=== PATIENT | male | born 1955 ===

== ENCOUNTER 2019-05-10 10:04 | Inpatient (IN) | payer MEDICAID ==
[~2019-05-10] VITALS: Ht 177.8 cm; Wt 72.5 kg
[2019-05-10] MEDS ORDERED: mag hydrox/Alum hydrox/simeth 30ml oral suspension PO PRN (15:10)
[2019-05-10] MEDS ORDERED: loperamide 2mg capsule PO PRN (15:10)
[2019-05-10] MEDS ORDERED: magnesium hydroxide 30ml (MOM) UD suspension PO PRN (15:10)
[2019-05-10] MEDS ORDERED: acetaminophen 325mg tablet PO PRN ×2 (15:10)
[2019-05-10] MEDS ORDERED: tuberculin, purif. prot. deriv. 5 units/0.1ml ID ONE (15:10)
[2019-05-10] MEDS ORDERED: olanzapine 10mg tablet PO PRN (15:20)
[2019-05-10] MEDS ORDERED: polyvinyl alcohol ophthalmic drops 15ml bottle EACHEYE PRN (15:20)
--- NOTE | 2019-05-10 16:15 | NUR ---
Admission note: Admitted this 63 year old gentleman on a 5150 for Gra[employer] disability at 1515 hours today. Client was brought to the unit in with Security and several staff members. He was wanded prior to his admission to the unit and then showered. Vital signs were, BP= 110/63, P=45, R=18 and T was 98.7. O2 sats upon admission was 100 percent on RA. Client refused height but weighs 67.8 kg. Client denied pain or problems upon admission. All assessments for admission completed by this expert medical writer. MRSA swab was collected and PPD was refused by client. During assessment, client was verbally abusive towards staff and was selectively mute during the assessment process. Tobacco cessation was discussed but quickly dismissed by client who stated, " I don't need to listen to you, you are a mother fucker". Client is a flight risk and staff has been alerted to the potential for elopement. Medical and family history is unclear due to client refusing to reply to questions. All patient belongings were inventoried per unit protocol and contraband (tobacco cutter) was confiscated without problems. Client remained hostile, abusive and threatening throughout interview but was redirectable at times.
[2019-05-10] MEDS ORDERED: NO HOME MEDS (17:31)
[2019-05-10] MEDS ORDERED: OLANZapine 2.5MG tablet PO PRN (21:20)
[2019-05-11] MEDS: hydrOXYzine 25 MG tablet PO PRN (00:45)
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
[2019-05-11] MEDS ORDERED: LORazepam 2 mg/ml vial ONE (08:39)
[2019-05-11] MEDS ORDERED: haloperidol lactate 5mg/ml inj ONE (08:40)
[2019-05-11] MEDS ORDERED: benztropine 1 mg/ml 2ml ampule ONE (08:41)
--- NOTE | 2019-05-11 09:25 | NUR ---
Unusual Occurrence After breakfast in the community room, patient gathered his blankets and announced he was leaving. Presented as agitated and angry. Walked down to the emergency exit near the laundry room and proceeded to lean on the door handle. Staff went down the elizabeth after patient and distracted him away from the emergency door. Patient insisted he was going to leave and attempted to go out the locked front door. Angi RN standing in front of door and notified patient door was locked. Agitated mood continued. Patient's safety and that of other patients of concern at this time. Dr. Susana Sauer called and notified of patient's behavior. Orders given for IM medication. Security called for back-up. Medication drawn up and administered in both arms with the help of security. Patient escorted back to his bed and made comfortable with warm blankets. Staff Jose sitting at bedside to ensure patient's safety from falling in the event he got out of bed. Patient fell asleep within 15 minutes. Color and breathing WNL. No S/S distress. Side rails up at head of bed. Line of sight staff removed. Will be maintained on 15 minute checks.
--- NOTE | 2019-05-11 11:54 | NUR ---
Malnutrition consult. Patient is eating well 100%, no edema, no muscle weakness, prior weight and height appear to be in error from May 04 ED visit, height is 75 inches from ED visit and weight is patient stated. No malnutrition at this time. Addendum: 05/11/19 at [address] Amended: Links added.
[2019-05-11] MEDS: LORazepam 1 MG tablet PO PRN (14:08)
[2019-05-11] MEDS: OLANZapine 5mg rapidly disint. tablet PO PRN (14:08)
--- NOTE | 2019-05-11 14:18 | NUR ---
Nursing Progress Note: Legal hold: 5150 Client on involuntary status for GD Report received from nurse with use of SBAR: GRACE Sands Why are they here: Pt. brought to the ER by [employer] after being found walking on the freeway in an aletered state of confusion with agitation. He presented as deeply tanned, disheveled, and malodorous and was placed on a 5150 by [facility] for GD. Per ER notes, pt. reported he had walker from [facility] to [place] and was on his way to [place], stated, "I'm going to get the michael that killed my brother." He is currently homeless and unable to utilize resources to obtain food, clothing, or snf. Pt. had recently been released from the [facility] for intoxication and several APS reports had been made. Tox Screen negative. Assessment What has happened this shift: Woke up in an agitated mood. Using foul language when addressing staff. Repeatedly states "I'm leaving. I'm getting out of this place." as he holds on to his blankets wadded in his arms. Eventually allowed staff to direct him to the community room for breakfast. Ate 100% of his meal. (Please see earlier note.) Slept until lunchtime when informed his meal was here. Allowed staff to direct him to his tray stating "Thank you" "Yes ma'am" After eating 100% of his meal stated "I wish I could get well." When asked what was the matter patient replied "I have pneumonia. I'm cold and I can't warm up." Given heated blankets and made comfortable in bed. Asked if he thought he needed more medication and patient responded "yes." Zyprexa Zydis 10 mg. PO and Ativan 1 mg. PO administered without event. Noticeable change in mood and affect since medication administration. Calm, cooperative and relaxed. Dr. Sina Rees here to see patient for medical exam. Patient stated to doctor "I have pneumonia." Denies coughing, productive cough or fever though does admit to chills. S/I, H/I: Endorses H/I, states, stated, "I'm going to get the michael that killed my brother." A/VH: Denies, however appears to be responding to internal stimuli and can be observed talking softly to himself. Sleep: Sleeping easily this shift ADL's: Requires direction from staff, pt. is unsuccessful at locating the BR in his room, and has to be directed from staff several times throughout the shift Group attendance: Did not attend Were meds taken: Please see note Any med S/E: None noted by patient or observed Mental Status Exam Appearance: Pt. continues to present as deeply tanned, disheveled, and malodorous Eye contact: Poor Behavior: Resistive to care, confused, restless, irritable, agitated at times, impulsive, and withdrawn Speech: Soft, becomes intense and pressured when agitated. Pt. responds only to questions and sometimes will become agitated and refuse to respond at all. Mood: Irritable and withdrawn Affect: Constricted Thought process: Tangental, however able to be redirected Thought Content: Possible A/V/ALCANTAR, grandiose delusions, and preoccupation with "leaving tomorrow." Cognition: A &O X1 Insight: Poor Judgment: Poor Interventions PRN's used: Zyprexa and Atrax Therapeutic interventions: Introduced self and attempted to establish rapport, ensured contract for safety, maintained a safe and supportive environment, provided clear and simple instructions, provided re-orientation as needed, monitored behaviors and need for intervention, and maintained Q 15 min safety checks. Restraints/seclusion/emergency medication: N/A Justification of Continued Inpatient Treatment: Pt. is unable to provide for his own food, clothing and snf. He requires medication adjustments and a safe and supportive environment.
[2019-05-11] MEDS ORDERED: tuberculin, purif. prot. deriv. 5 units/0.1ml ID ONE (14:25)
[2019-05-11 16:10] LABS: HIV ANTIBODY 1&2 RAPID NON-REACTIVE (Neg)
--- NOTE | 2019-05-11 19:11 | NUR ---
This patient is sleeping at shift change.
[2019-05-11 20:00] VITALS: BP 109/58
[2019-05-11] MEDS: OLANZapine 2.5MG tablet PO SCH (20:44)
--- NOTE | 2019-05-11 23:24 | NUR ---
Nursing Progress Note: Legal hold: 5150 Client on involuntary status for GD Report received from nurse with use of SBAR: GRACE Swanson Why are they here: Pt. brought to the ER by [employer] after being found walking on the freeway in an aletered state of confusion with agitation. He presented as deeply tanned, disheveled, and malodorous and was placed on a [address] [facility] for GD. Per ER notes, pt. reported he had walker from [facility] to [place] and was on his way to [place], stated, "I'm going to get the michael that killed my brother." He is currently homeless and unable to utilize resources to obtain food, clothing, or residential. Pt. had recently been released from the [facility] for intoxication and several APS reports had been made. Tox Screen negative. Assessment What has happened this shift: This patient was sleeping on his left side and did not awaken to light stimulation. This patient awoke later and was moved to another room. He sat up in bed, he ate 100 percent of his food. The patient tells this bid writer that he feels tired. This patient denies any H/I, S/I, or hallucinations. He speaks quietly, he is medication compliant. Patient was reported to endorse H/I on the day shift, there is no mention of this to this bid writer on nights. The patient took his night time medications and returned to sleep. Patients resting pulse rate is 50. The patient vital sighs are asymptomatic. his patient was advised that he was in a safe place prior to going to sleep. He did exhibit understanding of this. Q15 minute rounding will be done for patient safety. S/I, H/I: Denies A/VH: Denies. Sleep: Sleeping easily this shift ADL's: None on NOC shift noted. Group attendance: Did not attend on days. Were meds taken: Yes Any med S/E: None noted by patient or observed. Mental Status Exam Appearance: Pt. continues to present as deeply tanned, disheveled, and malodorous. Eye contact: Poor Behavior: Resistive to care, confused, restless, irritable, agitated at times, impulsive, and withdrawn Speech: Soft, becomes intense and pressured when agitated. Pt. responds only to questions and sometimes will become agitated and refuse to respond at all. Mood: Quiet and withdrawn. Affect: Constricted Thought process: Tangental, however able to be redirected Thought Content: Possible A/V/ALCANTAR, grandiose delusions, and preoccupation with "leaving tomorrow." Cognition: A &O X3 Insight: Fair Judgment: Fair Interventions PRN's used: None Therapeutic interventions: Introduced self and attempted to establish rapport, ensured contract for safety, maintained a safe and supportive environment, provided clear and simple instructions, provided re-orientation as needed, monitored behaviors and need for intervention, and maintained Q 15 min safety checks. Restraints/seclusion/emergency medication: N/A Justification of Continued Inpatient Treatment: Pt. is unable to provide for his own food, clothing and residential. He requires medication adjustments and a safe and supportive environment.
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
[2019-05-12 20:00] VITALS: BP 105/51
[2019-05-12] MEDS: hydrOXYzine 25 MG tablet PO PRN (21:22)
[2019-05-12] MEDS: OLANZapine 2.5MG tablet PO SCH (21:22)
[2019-05-12] MEDS: LORazepam 1 MG tablet PO PRN (21:23)
[2019-05-12] MEDS ORDERED: temazepam 15mg capsule PO PRN (23:25)
--- NOTE | 2019-05-12 23:42 | NUR ---
Patient rang call hernández. Upon entering patients room he is rummaging through the trash can, he does not know why. Patient states he can't sleep, "I haven't slept for three days." Patient is unaware that he slept the previous night. Patient exhibits purposeless behavior. He appears less psychotic than earlier in the evening. The patient requests sleep medication. Dr. Sauer was contacted by [employer]. TO orders received for Restoril 30 mg now. This was administered. The patient does not require much discussion to effect medication compliance at this time.
[2019-05-13] MEDS ORDERED: traZODone 50mg tablet PO ONE (01:40)
--- NOTE | 2019-05-13 02:08 | NUR ---
This patient was sitting in hallway, states he can't sleep yet. contacted. TO for Trazadone 50 mg, MRX1 received. The first dose was administered a short time ago.
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
[2019-05-13 07:09] LABS: HBSAG SCREEN Negative (Negative); HEP A AB, IGM Negative (Negative); HEP B CORE AB, IGM Negative (Negative); HEPATITIS C ANTIBODY <0.1 s/co ratio (0.0-0.9)
[2019-05-13 16:00] VITALS: BP 103/43
--- NOTE | 2019-05-13 17:17 | NUR ---
Nursing Progress Note: Latrell Legal hold: 5150 Client on involuntary status for GD Report received from principal quality engineer RN Why are they here: Pt. brought to the ER by [employer] after being found walking on the freeway in an altered state of confusion with agitation. He presented as deeply tanned, disheveled, and malodorous and was placed on a 5150 by [facility] for GD. Per ER notes, pt. reported he had walker from [facility] to [place] and was on his way to [place], stated, "I'm going to get the michael that killed my brother." He is currently homeless and unable to utilize resources to obtain food, clothing, or fdc. Pt. had recently been released from the [facility] for intoxication and several APS reports had been made. Tox Screen negative. Assessment What has happened this shift: Received client in bed resting with eyes closed. Respirations were even and unlabored. Client stated, "I want to rest". Client refused breakfast but did consume a doughnut and a milk and returned to bed. He refused vital signs and said, " I do not want your fucking pills". Client was notified that he would be changing rooms and he accepted the news without incident. After transfer was conducted, client said, "Thank-you". He was given a PBJ sandwich and a milk before returning to bed. No somatic complaints as of this writing. Client is less labile today and has interacted with staff in an appropriate manner. Client able to make his needs known. Patient did complain of rib pain earlier in shift but no complaints of problem or pain this afternoon. S/I, H/I: No S/I, patient does make homicidal statements. A/VH: none reported Sleep: 5.25 ADL's: Independent Group attendance: Were meds taken: N/A Any med S/E: None noted by patient or observed. Mental Status Exam Appearance: disheveled and unkempt Eye contact: direct Behavior: Resistive to medications but redirected with success. Speech: Minimal, soft tone, normal rate/rhythm Mood: Agitation, angry, paranoia at times. Affect: congruent to mood Thought process: disorganized Thought Content: preoccupation with leaving Cognition: Oriented to person, doesn't know place, time, or year. Insight: Fair Judgment: Fair to poor. Interventions PRN's used: None Therapeutic interventions: Continued therapeutic support and medication management needed to provide stabilization, prevent decompensation, improve coping mechanisms decreasing risk to patient and re-admittance. Restraints/seclusion/emergency medication: N/A Justification of Continued Inpatient Treatment: Pt. is unable to provide for his own food, clothing and fdc. Continued therapeutic support and medication management needed to provide stabilization, prevent decompensation, decreasing risk to patient and re-admittance.
[2019-05-13] MEDS ORDERED: traZODone 50mg tablet PO PRN (19:30)
[2019-05-13 20:00] VITALS: BP 106/52
[2019-05-13] MEDS ORDERED: traZODone 50mg tablet PO SCH (20:00)
[2019-05-13] MEDS: LORazepam 1 MG tablet PO PRN (21:00)
[2019-05-13] MEDS: OLANZapine 5mg rapidly disint. tablet PO SCH (21:00)
[2019-05-14] MEDS ORDERED: traZODone 50mg tablet PO SCH (00:35)
--- NOTE | 2019-05-14 02:15 | NUR ---
Nursing Progress Note: Latrell Legal hold: 5150 Client on involuntary status for GD Report received from GRACE Chau Why are they here: Pt. brought to the ER by [employer] after being found walking on the freeway in an altered state of confusion with agitation. He presented as deeply tanned, disheveled, and malodorous and was placed on a 5150 by [facility] for GD. Per ER notes, pt. reported he had walker from [facility] to [place] and was on his way to [place], stated, "I'm going to get the michael that killed my brother." He is currently homeless and unable to utilize resources to obtain food, clothing, or long-term. Pt. had recently been released from the [facility] for intoxication and several APS reports had been made. Tox Screen negative. Assessment What has happened this shift: The patient was ambulatory at shift change. He ate all of his dinner. He sat with this leader writer in the recreation room. Patient is oriented to person, he understands he is in a behavioral health facility. Patient still wants to leave. Patient becomes labile at times, talks of going to [place] to kill the man who overdosed his baby brother with alcohol. He is delusional at times. Patient denies S/I or H/I, he denies hallucinations. This patient is medication compliant. This patient can be redirected. This patient exhibits disorientation to time and sometimes situation. This patient is reassured that he is in a safe place. Q15 minute rounding will be continued. S/I, H/I: No S/I, patient does make homicidal statements. A/VH: none reported Sleep: Intermittent. Tallies are not done on nights yet. ADL's: Independent Group attendance: Unknown on days. Were meds taken: N/A Any med S/E: None noted by patient or observed. Mental Status Exam Appearance: Disheveled and unkempt Eye contact: Direct Behavior: Resistive to medications but redirected with success. Speech: Minimal, soft tone, normal rate/rhythm Mood: Agitation, angry, paranoia at times. Affect: Congruent to mood Thought process: Disorganized Thought Content: Preoccupation with leaving. Patient attempted to exit via panic hardware early yesterday am. Cognition: Oriented to person, doesn't know place, time, or year. Insight: Fair Judgment: Fair to poor. Interventions PRN's used: None Therapeutic interventions: Continued therapeutic support and medication management needed to provide stabilization, prevent decompensation, improve coping mechanisms decreasing risk to patient and re-admittance. Restraints/seclusion/emergency medication: N/A Justification of Continued Inpatient Treatment: Pt. is unable to provide for his own food, clothing and long-term. Continued therapeutic support and medication management needed to provide stabilization, prevent decompensation, decreasing risk to patient and re-admittance.
[2019-05-14 08:00] VITALS: BP 102/56
[2019-05-14] MEDS: LORazepam 1 MG tablet PO PRN (08:54)
[2019-05-14] MEDS: OLANZapine 5mg rapidly disint. tablet PO PRN (08:55)
--- NOTE | 2019-05-14 11:23 | NUR ---
Initial: Pt admit w/ psychosis hx prior heroin per MD note. PO 100% meals meeting needs. No BM yet this admit though no GI symptoms noted; ambulates independently likely to bathroom as well. Will monitor for additional bowel care needs. No nutrition concerns at this time. Rec: 1. continue regular diet 2. routine bowel care 3. wt per rx Addendum: 05/14/19 at [address] Amended: Links added.
--- NOTE | 2019-05-14 16:03 | NUR ---
Nursing Progress Note: Legal hold: 5150 Client on involuntary status for GD Report received from nurse with use of SBAR: GRACE Beckford Why are they here: Pt. brought to the ER by [employer] after being found walking on the freeway in an aletered state of confusion with agitation. He presented as deeply tanned, disheveled, and malodorous and was placed on a 5150 by [facility] for GD. Per ER notes, pt. reported he had walker from [facility] to [place] and was on his way to [place], stated, "I'm going to get the michael that killed my brother." He is currently homeless and unable to utilize resources to obtain food, clothing, or custodial. Pt. had recently been released from the [facility] for intoxication and several APS reports had been made. Tox Screen negative. Assessment What has happened this shift: Patient is observed sleeping at change of shift. Awakened for breakfast and mini mental status exam. Patient stated "Oh no. They ask me this every day. I'm not having none of that anymore." Appears perplexed about how to make it from his room to the community room for breakfast. Escorted by staff to his table. Ate 100% of his meal. Presents with a childlike personality/poor frustration tolerance. Polite and gentle when he gets what he wants. Angry and foul mouthed when he believes he will be denied his request or asked to do anything that doesn't agree with him. Early in morning, took off his top shirt and bottom shirt stating he was covered in bugs. Patient examined and was not covered in bugs. Given PRN Ativan 1 mg. and Zyprexa 10 mg. to decrease agitation and increase comfort. Accepted medication without event. Improvement noted in patient's ability to relax shortly afterwards. Patient appears compromised with his orientation. Has difficulty locating his room once he is too far away from his room. Coffee is very important to him as his food. S/I, H/I: Refused to answer questions A/VH: Refused to answer questions Sleep: Slept briefly during the day ADL's: Requires encouragement Group attendance: No Were meds taken: Yes Any med S/E: None reported by patient or observed. Mental Status Exam Appearance: disheveled and unkempt Eye contact: direct Behavior: AM =resistive to care, confused, agitated in AM, pleasant after breakfast Speech: minimal, soft tone, normal rate/rhythm Mood: cranky in the morning pleasant the rest of the day Affect: congruent to mood Thought process: disorganized Thought Content: preoccupation with leaving Cognition: A &O X3 Insight: Fair Judgment: Fair Interventions PRN's used: None Therapeutic interventions: Continued therapeutic support and medication management needed to provide stabilization, prevent decompensation, improve coping mechanisms decreasing risk to patient and re-admittance. Restraints/seclusion/emergency medication: N/A Justification of Continued Inpatient Treatment: Pt. is unable to provide for his own food, clothing and custodial. Continued therapeutic support and medication management needed to provide stabilization, prevent decompensation, decreasing risk to patient and re-admittance.
[2019-05-14 19:53] VITALS: BP 105/49
[2019-05-14] MEDS: OLANZapine 5mg rapidly disint. tablet PO SCH (21:00)
--- NOTE | 2019-05-14 22:49 | NUR ---
Nursing Progress Note: Legal hold: 5150 Client on involuntary status for GD Report received from nurse with use of SBAR: GRACE Chau Why are they here: Pt. brought to the ER by [employer] after being found walking on the freeway in an aletered state of confusion with agitation. He presented as deeply tanned, disheveled, and malodorous and was placed on a 5150 by [facility] for GD. Per ER notes, pt. reported he had walker from [facility] to [place] and was on his way to [place], stated, "I'm going to get the michael that killed my brother." He is currently homeless and unable to utilize resources to obtain food, clothing, or fdc. Pt. had recently been released from the [facility] for intoxication and several APS reports had been made. Tox Screen negative. Assessment What has happened this shift: Patient is observed sleeping at change of shift. Pt was in the elizabeth at change of shift. 1:1 assessment completed in REC room. Pt is resistive to answering questions, puts hand on his forehead states "Oh no not this again." Pt is agitated, states he didn't get anything but gravy for dinner, but nutrition slip shows he ate 100% of protein and carbs with dinner meal. Pt walks away when asked about sleep. Pt asked for water, and was given water but then complained that he didnt ask for any water. Pt spent evening sitting in group room having snacks before going to bed. Pt refused meds, stating "oh no you're not giving me any medicine." Pt entered multiple rooms and attempted to sleep in another patients bed and was directed to his own bed. Pt gets lots when he gets too far from his room. S/I, H/I: Refused to answer questions A/VH: Refused to answer questions Sleep: pt is sleeping ADL's: Requires encouragement Group attendance: No Were meds taken: Yes Any med S/E: None reported by patient or observed. Mental Status Exam Appearance: disheveled and unkempt Eye contact: direct Behavior: AM =resistive to care, confused, agitated in AM, pleasant after breakfast Speech: minimal, soft tone, normal rate/rhythm Mood: irritable Affect: congruent to mood Thought process: disorganized Thought Content: preoccupation with leaving Cognition: A &O X3 Insight: Fair Judgment: Fair Interventions PRN's used: None Therapeutic interventions: Continued therapeutic support and medication management needed to provide stabilization, prevent decompensation, improve coping mechanisms decreasing risk to patient and re-admittance. Restraints/seclusion/emergency medication: N/A Justification of Continued Inpatient Treatment: Pt. is unable to provide for his own food, clothing and fdc. Continued therapeutic support and medication management needed to provide stabilization, prevent decompensation, decreasing risk to patient and re-admittance.
[2019-05-15 07:56] VITALS: BP 115/60
--- NOTE | 2019-05-15 15:20 | NUR ---
Nursing Progress Note: Legal hold: 5150 Client on involuntary status for GD Report received from nurse with use of SBAR: GRACE Sands Why are they here: Pt. brought to the ER by [employer] after being found walking on the freeway in an aletered state of confusion with agitation. He presented as deeply tanned, disheveled, and malodorous and was placed on a 5150 by [facility] for GD. Per ER notes, pt. reported he had walker from [facility] to [place] and was on his way to [place], stated, "I'm going to get the michael that killed my brother." He is currently homeless and unable to utilize resources to obtain food, clothing, or intermediate. Pt. had recently been released from the [facility] for intoxication and several APS reports had been made. Tox Screen negative. Assessment What has happened this shift: Received patient visible on the unit. Patient has flat affect most of the day but does become angry at times and even smiled once or twice. Patient remains confused and disorganized and is oriented to person and place. And the place is, he knows this is the hospital but he is unable to name it. Patient continues to be paranoid and delusional some grandiose thoughts. Patient states I made $920, million and 30 seconds. Patient also observed talking to himself (sometimes heatedly) and gesturing in the air at nothing. Patient denies internal stimuli. Patient left group to use the bathroom and started to walk in female bedroom. Patient became agitated when we directed down to his room. Patient smiling when he came out of bathroom seemingly to forget the previous conversation. Patient had his 14 day course today. S/I, H/I: Refused to answer questions A/VH: Refused to answer questions Sleep: Slept briefly during the day ADL's: Requires encouragement, refused to shower, states he did it yesterday Group attendance: Yes Were meds taken: Yes Any med S/E: None reported by patient or observed. Mental Status Exam Appearance: disheveled and unkempt Eye contact: direct Behavior: AM =resistive to care, confused, agitated in AM, pleasant after breakfast Speech: minimal, soft tone, normal rate/rhythm Mood: somewhat labile Affect: congruent to mood Thought process: disorganized Thought Content: preoccupation with leaving Cognition: A &O X3 Insight: Fair Judgment: Fair Interventions PRN's used: None Therapeutic interventions: Continued therapeutic support and medication management needed to provide stabilization, prevent decompensation, improve coping mechanisms decreasing risk to patient and re-admittance. Restraints/seclusion/emergency medication: N/A Justification of Continued Inpatient Treatment: Pt. is unable to provide for his own food, clothing and intermediate. Continued therapeutic support and medication management needed to provide stabilization, prevent decompensation, decreasing risk to patient and re-admittance.
[2019-05-15] MEDS: traZODone 50mg tablet PO SCH (20:00)
[2019-05-15 20:34] VITALS: BP 101/60
[2019-05-15] MEDS: OLANZapine 5mg rapidly disint. tablet PO SCH (20:42)
--- NOTE | 2019-05-15 22:49 | NUR ---
Nursing Progress Note: Legal hold: 5150 Client on involuntary status for GD Report received from nurse with use of SBAR: GRACE Serrano Why are they here: Pt. brought to the ER by [employer] after being found walking on the freeway in an aletered state of confusion with agitation. He presented as deeply tanned, disheveled, and malodorous and was placed on a 5150 by [facility] for GD. Per ER notes, pt. reported he had walker from [facility] to [place] and was on his way to [place], stated, "I'm going to get the micahel that killed my brother." He is currently homeless and unable to utilize resources to obtain food, clothing, or longterm. Pt. had recently been released from the [facility] for intoxication and several APS reports had been made. Tox Screen negative. Assessment What has happened this shift: Received patient visible on the unit. Patient refused his HS medications. Patient has flat affect Patient is confused and disorganized and is oriented to person and place. And the place is, he knows this is the hospital but he is unable to name it. Patient continues to be paranoid and delusional some grandiose thoughts. Patient also observed talking to himself (sometimes heatedly) and gesturing in the air at nothing. When asked about his voices he became angry and yells " Dont ever ask me about voices again. Patient denies internal stimuli. Patient left group to use the bathroom and asked which room am I in". Patient became agitated when we directed down to his room. Patient smiling when he came out of bathroom seemingly to forget the previous conversation. Patient had his 14 day course today. S/I, H/I: Refused to answer questions A/VH: Refused to answer questions Sleep: Slept briefly during the day ADL's: Requires encouragement, refused to shower, states he did it yesterday Group attendance: Yes Were meds taken: Yes Any med S/E: None reported by patient or observed. Mental Status Exam Appearance: disheveled and unkempt Eye contact: direct Behavior: AM =resistive to care, confused, agitated in AM, pleasant after breakfast Speech: minimal, soft tone, normal rate/rhythm Mood: somewhat labile Affect: congruent to mood Thought process: disorganized Thought Content: preoccupation with leaving Cognition: A &O X3 Insight: Fair Judgment: Fair Interventions PRN's used: None Therapeutic interventions: Continued therapeutic support and medication management needed to provide stabilization, prevent decompensation, improve coping mechanisms decreasing risk to patient and re-admittance. Restraints/seclusion/emergency medication: N/A Justification of Continued Inpatient Treatment: Pt. is unable to provide for his own food, clothing and longterm. Continued therapeutic support and medication management needed to provide stabilization, prevent decompensation, decreasing risk to patient and re-admittance.
[2019-05-16 08:00] VITALS: BP 111/63
--- NOTE | 2019-05-16 13:27 | NUR ---
Nursing Progress Note: Legal hold: 5250 Client on involuntary status for GD Report received from nurse with use of SBAR: GRACE Epperson Why are they here: Pt. brought to the ER by [employer] after being found walking on the freeway in an aletered state of confusion with agitation. He presented as deeply tanned, disheveled, and malodorous and was placed on a 5150 by [facility] for GD. Per ER notes, pt. reported he had walker from [facility] to [place] and was on his way to [place], stated, "I'm going to get the michael that killed my brother." He is currently homeless and unable to utilize resources to obtain food, clothing, or jail. Pt. had recently been released from the [facility] for intoxication and several APS reports had been made. Tox Screen negative. Assessment What has happened this shift: Received patient sleeping in bed w/o distress and with normal respirations. Pleasant and cooperative and smiling at this RN and speaking about family. Became irritated when speaking about someone that said his mother was a prostitute. He said she was not and I assured him that I believed him which he appreciated and then calmed. Enjoys making tea and attended groups and meals, interacting appropriately with others. Some grandiose thinking, oriented to person, place, time. Attempts jokes at times that dont make sense, but he laughs at them. S/I, H/I: Refused to answer questions A/VH: Refused to answer questions Sleep: Slept briefly during the day ADL's: Requires encouragement Group attendance: Yes Were meds taken: NA Any med S/E: None reported by patient or observed. Mental Status Exam Appearance: disheveled and unkempt Eye contact: direct Behavior: Pleasant and cooperative Speech: minimal, soft tone, normal rate/rhythm Mood: somewhat labile Affect: congruent to mood Thought process: disorganized Thought Content: On current needs Cognition: A &O X3 Insight: Fair Judgment: Fair Interventions PRN's used: None Therapeutic interventions: Continued therapeutic support and medication management needed to provide stabilization, prevent decompensation, improve coping mechanisms decreasing risk to patient and re-admittance. Restraints/seclusion/emergency medication: N/A Justification of Continued Inpatient Treatment: Pt. is unable to provide for his own food, clothing and jail. Continued therapeutic support and medication management needed to provide stabilization, prevent decompensation, decreasing risk to patient and re-admittance.
[2019-05-16 20:09] VITALS: BP 108/60
[2019-05-16] MEDS: traZODone 50mg tablet PO SCH (20:40)
[2019-05-16] MEDS: OLANZapine 5mg rapidly disint. tablet PO SCH (20:40)
--- NOTE | 2019-05-16 21:51 | NUR ---
Nursing Progress Note: Legal hold: 5150 Client on involuntary status for GD Report received from nurse with use of SBAR: GRACE Serrano Why are they here: Pt. brought to the ER by [employer] after being found walking on the freeway in an aletered state of confusion with agitation. He presented as deeply tanned, disheveled, and malodorous and was placed on a 5150 by [facility] for GD. Per ER notes, pt. reported he had walker from [facility] to [place] and was on his way to [place], stated, "I'm going to get the michael that killed my brother." He is currently homeless and unable to utilize resources to obtain food, clothing, or fpc. Pt. had recently been released from the [facility] for intoxication and several APS reports had been made. Tox Screen negative. Assessment What has happened this shift: Received patient visible on the unit. Patient took his HS medications. Patient has flat affect Patient is confused and disorganized and is oriented to person and place. And the place is, he knows this is the hospital but he is unable to name it. Patient continues to be paranoid and delusional some grandiose thoughts. Patient also observed talking to himself (sometimes heatedly) and gesturing in the air at nothing. When asked about his voices he became angry and yells " Dont ever ask me about voices again. Patient denies internal stimuli. Patient left group to use the bathroom and asked which room am I in". Patient became agitated when we directed down to his room. Patient smiling when he came out of bathroom seemingly to forget the previous conversation. S/I, H/I: Refused to answer questions A/VH: Refused to answer questions Sleep: Slept briefly during the day ADL's: Requires encouragement, refused to shower, states he did it yesterday Group attendance: Yes Were meds taken: Yes Any med S/E: None reported by patient or observed. Mental Status Exam Appearance: disheveled and unkempt Eye contact: direct Behavior: AM =resistive to care, confused, agitated in AM, pleasant after breakfast Speech: minimal, soft tone, normal rate/rhythm Mood: somewhat labile Affect: congruent to mood Thought process: disorganized Thought Content: preoccupation with leaving Cognition: A &O X3 Insight: Fair Judgment: Fair Interventions PRN's used: None Therapeutic interventions: Continued therapeutic support and medication management needed to provide stabilization, prevent decompensation, improve coping mechanisms decreasing risk to patient and re-admittance. Restraints/seclusion/emergency medication: N/A Justification of Continued Inpatient Treatment: Pt. is unable to provide for his own food, clothing and fpc. Continued therapeutic support and medication management needed to provide stabilization, prevent decompensation, decreasing risk to patient and re-admittance.
[2019-05-17 07:44] VITALS: BP 124/61
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
[2019-05-17 20:00] VITALS: BP 137/66
[2019-05-17] MEDS: traZODone 50mg tablet PO SCH (20:00)
[2019-05-17] MEDS: OLANZapine 5mg rapidly disint. tablet PO SCH (20:45)
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
[2019-05-18 09:06] VITALS: BP 116/54
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
[2019-05-18 20:00] VITALS: BP 102/51
[2019-05-18] MEDS: traZODone 50mg tablet PO SCH (20:39)
[2019-05-18] MEDS: OLANZapine 5mg rapidly disint. tablet PO SCH (20:41)
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
[2019-05-19 08:00] VITALS: BP 120/53
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
[2019-05-19 20:00] VITALS: BP 119/69
[2019-05-19] MEDS: traZODone 50mg tablet PO SCH (20:00)
[2019-05-19] MEDS ORDERED: olanzapine 10mg tablet PO SCH (21:00)
[2019-05-19] MEDS ORDERED: diphenhydrAMINE 50 mg/ml inj IM ONE (22:20)
[2019-05-19] MEDS ORDERED: haloperidol lactate 5mg/ml inj IM ONE (22:20)
[2019-05-19] MEDS ORDERED: LORazepam 2 mg/ml vial IM ONE ×2 (22:20)
--- NOTE | 2019-05-19 22:40 | NUR ---
Chemical Restraint Administration Note: 2129: Pt becoming increasingly agitated and angry, cussing "I won't take my fucking meds!" and directing profane language towards staff 2149:Pt approaching this RN, staff and pts in aggressive manner - very close, yelling, and cussing when asked to lower voice or sit quietly. RN/Staff offered nighttime medications again and for pt to watch TV. Pt continues to yell and cuss and remain agitated. 2199: Pt agitated and cussing at fellow inpatient. RN attempts deescalation through distraction and offers oral PRNs but patient yells and cusses. Pt paces the halls and enters the TV room sporadically. 221: Verbal order obtained from RAND Nair who is present and witnessing behavior and interactions. 221: RAND Michael attempts de-escalation; offers oral PRNs- pt refuses, cusses and yells at PA. Agitation visibly increased. 2225: Security called to floor for chemical restraint administration. 2230: This RN attempts to discuss alternatives with pt; nighttime medication, oral PRNs to decrease agitation, suggest pt lay down and rest. Pt continues to refuse, cussing, yelling at staff. 2240: IM chemical restraint administered. Security remained present then okay'd by [facility] staff to leave. Pt agitated, walked the halls a couple times then returned to his bed.
--- NOTE | 2019-05-19 23:00 | NUR ---
Pt refusing vitals. In bed.
--- NOTE | 2019-05-19 23:25 | NUR ---
Pt in bed, refusing vitals. Tells RN "I'm not fucking answering any of your questions" in response to "How are you feeling?"
--- NOTE | 2019-05-19 23:45 | NUR ---
Pt walking the elizabeth quietly before returning to room.
--- NOTE | 2019-05-20 | NUR ---
Pt laying quietly in bed.
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
--- NOTE | 2019-05-20 03:00 | NUR ---
Pt sleeping; breathing even and unlabored.
[2019-05-20 07:30] VITALS: BP 137/61
[2019-05-20] MEDS: OLANZAPINE 5 MG TABLET PO SCH ×2 (08:23→21:00)
--- NOTE | 2019-05-20 12:58 | NUR ---
DISCHARGE PLANNING: Spoke w/ pt about D/C, if he'd like services in [facility], he asked why loudly "they have nothing there". This promotion writer exlained that's where his insurance is . Pt threw up his hands , yelled "That's ridiculous" and walked off. Waited a bit & asked pt where he would like to go and he said [place], asked if he had a plan how to get there and he replied w/ his car. Asked where his car was he yelled I was ridiculous and he was done talking w/ me. Colin Kiranlety @ [phone] from [facility] phoned LM saying the services they can offer pt would be to go through [facility] for Out Patient through the same day services drop in unit at [address] [place] [address]. He continued they have offered pt this resoure several times in the past but he has never availed himself of them. Updated Dr. Sauer and he said he will recommend [facility]. SLAVA Dawson
--- NOTE | 2019-05-20 14:48 | NUR ---
Reassessment: Pt continues meeting nutrient needs with documented 75-100% PO intake. [facility] 05/19. No nutrition diagnosis at this time. Will continue to follow. Rec: 1. continue regular diet 2. routine bowel care 3. wt per rx Addendum: 05/20/19 at [address] Amended: Links added.
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
[2019-05-20 19:00] VITALS: BP 102/52
[2019-05-20] MEDS: traZODone 50mg tablet PO SCH (20:00)
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
[2019-05-21] MEDS: OLANZAPINE 5 MG TABLET PO SCH ×2 (07:26→21:00)
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
--- NOTE | 2019-05-21 17:11 | NUR ---
Progress notes: update Client spent majority of afternoon in Group room. He spent time interacting with peers and staff and was appropriate. Client took several rest periods and there were no behavioral problems during the afternoon. Client appears to be focusing on discharge and wants to go to [place] where he states he is from.
[2019-05-21 19:52] VITALS: BP 100/42
[2019-05-21] MEDS: traZODone 50mg tablet PO SCH (20:00)
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
[2019-05-22 07:41] VITALS: BP 111/57
[2019-05-22] MEDS: OLANZAPINE 5 MG TABLET PO SCH ×2 (08:06→21:00)
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
[2019-05-22] MEDS: traZODone 50mg tablet PO SCH (20:00)
[2019-05-22 20:08] VITALS: BP 113/73
[2019-05-23] MEDS: OLANZapine 5mg rapidly disint. tablet PO PRN (00:40)
--- NOTE | 2019-05-23 00:41 | NUR ---
Pt sat in hallway chair and refused to go into his room stating that his roommate told him to "shut up" so he didn't want to sleep in there. Pt seems somewhat agitated with his roommate and c/o not being able to sleep. Pt had refused evening meds. Offered pt prn meds and he agreed they would help. Administered prn zyprexa and prn trazadone.
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
[2019-05-23] MEDS: OLANZAPINE 5 MG TABLET PO SCH ×2 (07:23→21:00)
--- NOTE | 2019-05-23 07:41 | NUR ---
LPS/DISCHARGE PLANNING: ALISA made TC to Colin Duyen @ [phone] from [facility], requesting return contact. Deb Segovia, Report Writer BUSINESS PERFORMANCE MANAGER [id number] Supervised by Eran Campo, [id number]
--- NOTE | 2019-05-23 07:43 | NUR ---
LPS RECOMMENDATION: faxed LPS Conservatorship recommendation completed by Dr. Sauer to [facility] at [phone]. Deb Segovia, Special Needs Babysitter PUBLISHING MANAGER [id number] Supervised Eran Campo, [id number]
[2019-05-23 08:09] VITALS: BP 145/82
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
[2019-05-23] MEDS: traZODone 50mg tablet PO SCH (20:00)
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
[2019-05-24] MEDS: OLANZAPINE 5 MG TABLET PO SCH (07:20)
[2019-05-24 07:37] VITALS: BP 109/60
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
--- NOTE | 2019-05-24 15:01 | NUR ---
DISCHARGE PLANNING: SW made TC to Colin Geller @ [phone], who reports [facility] needs to contact Public Guardian directly. Pt would transfer to [facility] for LPS assessment. Pt is reported to be a transient who was placed on hold during his travel to [place]. Per Colin, pt is transient and [facility] may not have enough history and information for LPS Conservatorship process. Colin agreed to transfer SW to Silvestre Pepe, Hospital Draw Off Worker for [facility] at [phone] to discuss possible transfer to [facility]. Deb Segovia, Jewelry Consultant INSPECTOR BALANCE TRUING [id number] Supervised by Eran Campo, [id number]
[2019-05-24 19:51] VITALS: BP 107/54
[2019-05-24] MEDS ORDERED: olanzapine 10mg tablet PO SCH (21:00)
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
[2019-05-25] MEDS: olanzapine 10mg tablet PO SCH (08:00)
[2019-05-25 08:15] VITALS: BP 115/74
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
[2019-05-25] MEDS: OLANZAPINE 5 MG TABLET PO SCH (18:00)
[2019-05-25 19:00] VITALS: BP 116/61
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
[2019-05-26] MEDS: olanzapine 10mg tablet PO SCH (07:35)
--- NOTE | 2019-05-26 07:41 | NUR ---
[facility] COORDINATION: ALISA made TC to Silvestre Pepe, Hospital Wrapper Caser for [facility] at [phone], to continue coordination of pt transfer to [facility] for LPS Conservatorship assessment due to [facility] recommendation. SW left message and provided legal hold dates. SW will contact later this day in attempt to solidify transfer plan. Deb Segovia, Motorcycle Designer SPORTS BOOK BOARD ATTENDANT [id number] Supervised by Eran Campo, [id number]
[2019-05-26 08:00] VITALS: BP 111/69
--- NOTE | 2019-05-26 08:41 | NUR ---
[facility]: ALISA received TC from Georgina at [facility] in [facility] [phone] ext 1, who reports the LPS recommendation has been submitted too late. She reports it can be resubmitted at the same time as the 5270 hold is placed, however due to the circumstances of this case it will likely be too late. She encouraged this typewriter mechanic to continue coordinating w/ [place] for transfer to [facility] in [facility]. Georgina states she will email the LPS Conservatorship instructions and paperwork to this typewriter mechanic for this typewriter mechanic to share with staff. Deb Segovia, Parent Educator TRANSFORMER BUILDER [id number] Supervised by Eran Campo, [id number]
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
[2019-05-26] MEDS: OLANZAPINE 5 MG TABLET PO SCH (18:00)
[2019-05-26 20:00] VITALS: BP 119/63
[2019-05-26] MEDS ORDERED: OLANZapine 2.5MG tablet PO ONE (20:45)
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
[2019-05-27 08:00] VITALS: BP 114/61
[2019-05-27] MEDS: olanzapine 10mg tablet PO SCH (08:00)
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
[2019-05-27] MEDS: OLANZAPINE 5 MG TABLET PO SCH (18:00)
[2019-05-27 20:00] VITALS: BP 113/61
--- NOTE | 2019-05-27 23:46 | NUR ---
Nursing Progress Note: Latrell Legal hold: 5250 Client on involuntary status for GD Report received from nurse with use of SBAR: Frandy EDWARDS Why are they here: Pt. brought to the ER by [employer] after being found walking on the freeway in an aletered state of confusion with agitation. He presented as deeply tanned, disheveled, and malodorous and was placed on a [address] [facility] for GD. Per ER notes, pt. reported he had walker from [facility] to [place] and was on his way to [place], stated, "I'm going to get the michael that killed my brother." He is currently homeless and unable to utilize resources to obtain food, clothing, or detention. Pt. had recently been released from the [facility] for intoxication and several APS reports had been made. Tox Screen negative. Assessment What has happened this shift: Patient visible on the unit for all meals. Patient did not attend groups. Patient refused medication and started cussing when nurse tried to explain to him the importance of taking medications and was encouraging him to take his morning medication. Patient observed pacing the unit slowly at times talking to himself, but patient refuses assessment and would not comment on whether he was hearing voices or not. Patient mood continues to be labile and if he gets mad, 10 minutes later he will forget that he was ever mad and be smiling again. Will continue to provide safe environment. This shift Pt wanderd the halls and needed redirection to his room. He was cheerful and cooperative . S/I, H/I: denies A/VH: denies Sleep: resting at times, no naps ADL's: Requires encouragement Group attendance: no Were meds taken: Yes Any med S/E: None reported by patient or observed. Mental Status Exam Appearance: disheveled in green scrubs Eye contact: direct Behavior: Pleasant and cooperative Speech: minimal, soft tone, normal rate/rhythm Mood: Pleasant Affect: congruent to mood Thought process: disorganized Thought Content: On current needs Cognition: A &O X3 Insight: Fair Judgment: Fair Interventions PRN's used: None Therapeutic interventions: Continued therapeutic support and medication management needed to provide stabilization, prevent decompensation, improve coping mechanisms decreasing risk to patient and re-admittance. Restraints/seclusion/emergency medication: N/A Justification of Continued Inpatient Treatment: Pt. is unable to provide for his own food, clothing and detention. Continued therapeutic support and medication management needed.
[2019-05-28 08:00] VITALS: BP 110/54
[2019-05-28] MEDS: olanzapine 10mg tablet PO SCH (08:00)
--- NOTE | 2019-05-28 10:20 | NUR ---
Reassessment: Pt continues meeting nutrient needs with documented 75-100% PO intake. [facility] 05/27. No nutrition diagnosis at this time. Will continue to follow. Addendum: 05/28/19 at [address] Amended: Links added.
--- NOTE | 2019-05-28 10:22 | NUR ---
DISCHARGE PLANNING: ALISA made TC to Silvestre Pepe, Hospital Family Day Care Worker for [facility] at [phone] (CELL [phone]) to confirm discharge/transport arrangements for 05/29/2019, after the 8720 hearing at [facility]. SW left message requesting a return contact. Deb Segovia, Motorcycle Repairer AIRCRAFT STRUCTURE MECHANIC [id number] Supervised by Eran Campo, [id number]
--- NOTE | 2019-05-28 12:48 | NUR ---
Nursing Progress Note: Latrell Legal hold: 5250 Client on involuntary status for GD Report received from nurse with use of SBAR: RN Why are they here: Pt. brought to the ER by [employer] after being found walking on the freeway in an altered state of both confusion with agitation. He presented as deeply tanned, disheveled, and malodorous and was placed on a 5150 by [facility] for GD. Per ER notes, pt. reported he had walker from [facility] to [place] and was on his way to [place], stated, "I'm going to get the michael that killed my brother." He is currently homeless and unable to utilize resources to obtain food, clothing, or mcfp. Pt. had recently been released from the [facility] for intoxication and several APS reports had been made. Tox Screen negative. Assessment What has happened this shift: Patient visible on the unit drinking coffee and making commentary about what is on TV or what staff or patients say. He will go into the room when groups are in session, but he does not interact appropriately. He spends a lot of time pacing and complaining. His memory is poor. He is not oriented to why he is here or time. I am hungry. You would be too. If you haven;t eaten for two days you get hungry. He will not take his medications. No, I dont take pills. It dang a hole in my freakin stomach. S/I, H/I: denies A/VH: denies Sleep: resting at times, no naps ADL's: Requires encouragement Group attendance: no Were meds taken: Yes Any med S/E: Dang a hole in my stomach Mental Status Exam Appearance: disheveled in green scrubs Eye contact: direct Behavior: Pleasant and cooperative Speech: Rerepeats phrases and words, minimal, soft tone, normal rate/rhythm Mood: Pleasant Affect: congruent to mood Thought process: disorganized Thought Content: VERY CONCERNED ABOUT THINGS ON THE UNIT STAYING NEAT AND ORGANIZED. Cognition: A &O X2 Insight: POOR Judgment: Poor PRN's used: None Therapeutic interventions: Continued therapeutic support and medication management needed to provide stabilization, prevent decompensation, improve coping mechanisms decreasing risk to patient and re-admittance. Restraints/seclusion/emergency medication: N/A Justification of Continued Inpatient Treatment: Pt. is unable to provide for his own food, clothing and mcfp. Continued therapeutic support and medication management needed.
[2019-05-28] MEDS: OLANZAPINE 5 MG TABLET PO SCH (18:00)
[2019-05-28 19:57] VITALS: BP 113/53
--- NOTE | 2019-05-28 22:12 | NUR ---
Nursing Progress Note: Latrell Legal hold: 5250 Client on involuntary status for GD Report received from nurse with use of SBAR: Maggie EDWARDS Why are they here: Pt. brought to the ER by [employer] after being found walking on the freeway in an altered state of both confusion with agitation. He presented as deeply tanned, disheveled, and malodorous and was placed on a 5150 by [facility] for GD. Per ER notes, pt. reported he had walker from [facility] to [place] and was on his way to [place], stated, "I'm going to get the michael that killed my brother." He is currently homeless and unable to utilize resources to obtain food, clothing, or senior care. Pt. had recently been released from the [facility] for intoxication and several APS reports had been made. Tox Screen negative. Assessment What has happened this shift: Patient visible on the unit drinking coffee and making commentary about what is on TV or what staff or patients say. He will go into the room when groups are in session, but he does not interact appropriately. He spends a lot of time pacing and complaining. His memory is poor. He is not oriented to why he is here or time. I am hungry. You would be too. If you haven;t eaten for two days you get hungry. He will not take his medications. No, I dont take pills. It dang a hole in my freaking stomach. Pt pacing the elizabeth till 20:15 when he asked what room is mine and went to bed. S/I, H/I: denies A/VH: denies Sleep: resting at times, no naps ADL's: Requires encouragement Group attendance: no Were meds taken: Yes Any med S/E: Dang a hole in my stomach Mental Status Exam Appearance: disheveled in green scrubs Eye contact: direct Behavior: Pleasant and cooperative Speech: Rerepeats phrases and words, minimal, soft tone, normal rate/rhythm Mood: Pleasant Affect: congruent to mood Thought process: disorganized Thought Content: VERY CONCERNED ABOUT THINGS ON THE UNIT STAYING NEAT AND ORGANIZED. Cognition: A &O X2 Insight: POOR Judgment: Poor PRN's used: None Therapeutic interventions: Continued therapeutic support and medication management needed to provide stabilization, prevent decompensation, improve coping mechanisms decreasing risk to patient and re-admittance. Restraints/seclusion/emergency medication: N/A Justification of Continued Inpatient Treatment: Pt. is unable to provide for his own food, clothing and senior care. Continued therapeutic support and medication management needed.
[2019-05-29] MEDS: olanzapine 10mg tablet PO SCH (07:19)
[2019-05-29] MEDS ORDERED: OLAN10TA19 PO (07:37)
[2019-05-29] MEDS ORDERED: OLAN5TAB26 PO (07:37)
[2019-05-29 07:47] VITALS: BP 115/62
--- NOTE | 2019-05-29 08:12 | NUR ---
DISCHARGE PLANNING: ALISA made TC to Silvestre Pepe, Hospital Ed Physicians for [facility] at [phone] (CELL [phone]) to confirm discharge/transport arrangements for 05/29/2019, after the 7190 hearing at [facility]. SW left message requesting a return contact. Deb Segovia, Plastic Machine Operator HUSBANDRY PERSON [id number] Supervised by Eran Campo, [id number]
--- NOTE | 2019-05-29 10:26 | NUR ---
Nursing Progress Note: Latrell Legal hold: 5250 Client on involuntary status for GD Report received from Shavon KENNY Why are they here: Pt. brought to the ER by [employer] after being found walking on the freeway in an altered state of both confusion with agitation. He presented as deeply tanned, disheveled, and malodorous and was placed on a 5150 by [facility] for GD. Per ER notes, pt. reported he had walker from [facility] to [place] and was on his way to [place], stated, "I'm going to get the michael that killed my brother." He is currently homeless and unable to utilize resources to obtain food, clothing, or skilled nursing. Pt. had recently been released from the [facility] for intoxication and several APS reports had been made. Tox Screen negative. Assessment What has happened this shift: Initially, patient was resting in bed to begin the shift. Client visible on unit around 0650 hours. Client was asked if he knew he was leaving today and he replied, " I don't care". Client is personable and amicable to care. Visible on unit and social with both staff and peer group. Client to be discharged today. Client is aware. S/I, H/I: denies A/VH: denies Sleep: ADL's: Requires encouragement Group attendance: Were meds taken: Yes Any med S/E: Mental Status Exam Appearance: disheveled in green scrubs Eye contact: direct Behavior: Pleasant and cooperative Speech: Repeats phrases and words, minimal, soft tone, normal rate/rhythm Mood: Pleasant Affect: congruent to mood Thought process: disorganized Thought Content: Cognition: A &O X2 Insight: POOR Judgment: Poor PRN's used: None Therapeutic interventions: Continued therapeutic support and medication management needed to provide stabilization, prevent decompensation, improve coping mechanisms decreasing risk to patient and re-admittance. Restraints/seclusion/emergency medication: N/A Justification of Continued Inpatient Treatment: Pt. is unable to provide for his own food, clothing and skilled nursing. Continued therapeutic support and medication management needed.
--- NOTE | 2019-05-29 12:50 | NUR ---
DISCHARGE PLANNING: ALISA made TC to Silvestre Pepe, Hospital Fund Development Manager for [facility] at [phone] (CELL [phone]). ALISA was instructed to send a packet to CSU for transfer and acceptance to [facility]. ALISA emailed secure packet and cc'd [facility] administrators. Deb Segovia, Residential Support Worker FELLMONGERING MACHINE OPERATOR [id number] Supervised by Eran Campo, [id number]
[2019-05-29 14:00] VITALS: BP 115/62
--- NOTE | 2019-05-29 14:44 | NUR ---
Nursing Progress Note: Latrell Client will not be discharged today due to complications on receiving end of his discharge. Client was informed earlier in shift of discharge and client was preparing to leave the facility to return to [facility]. Client was informed of the change of circumstancves and he appeared to take the news well. No behavioral issues as of this writing.
[2019-05-29] MEDS ORDERED: iohexol 350MG/ML 100ml bottle IV ONE (16:20)
--- NOTE | 2019-05-29 17:29 | NUR ---
Progress note: Latrell At around 1600 hours today, patient told credit underwriter his left arm,"went numb". Charge Nurse immediately was notified and the Stoke Team was activated. Vital signs at time of incident was, BP+ 115/62, R=18, P=54 and T=98.1. O2 sats were 100 percent on room air. IV was initiated in left arm(AC) with 18 gauge needle. Client remained alert and oriented x 2 throughout the entire event. Patient was evaluated via remote screening by a Stroke Team Doctor. Client was taken for CT scan and will have an MRI once ordered. MRI question form was filled out and faxed to the MRI (Radiology) Dept. Dr. Gaytan will be contacted by evaluating Doctor today via fax or phone. Client was informed of the process and the need for a decrease in activity until a complete evaluation has been concluded.
[2019-05-29] MEDS: OLANZAPINE 5 MG TABLET PO SCH (17:40)
[2019-05-29 18:19] LABS: BASOPHILS # (AUTO) 0.1 X10'3 (0-0.2); BASOPHILS % (AUTO) 1.2 % (0-1); EOSINOPHILS # (AUTO) 0.4 X10'3 (0-0.9); EOSINOPHILS % (AUTO) 6.6 % (0-6); HEMATOCRIT 35.1 % (42.0-52.0); HEMOGLOBIN 11.6 g/dl (14.0-17.9); LYMPHOCYTES # (AUTO) 1.2 X10'3 (1.1-4.8); MEAN CORPUSCULAR HEMOGLOBIN 31.2 PG (27.0-31.0); MEAN CORPUSCULAR VOLUME 94.4 FL (78-98); MEAN PLATELET VOLUME 7.7 FL (7.4-10.4); MONOCYTES # (AUTO) 0.6 X10'3 (0-0.9); MONOCYTES % (AUTO) 10.5 % (2-12); NEUTROPHILS # (AUTO) 3.1 X10'3 (1.8-7.7); NEUTROPHILS % (AUTO) 58.7 % (42-75); PLATELET COUNT 161 X10'3 (140-440); RED BLOOD COUNT 3.72 X10'6 (4.70-6.10); WHITE BLOOD COUNT 5.3 X10'3 (4.5-11.0)
[2019-05-29 18:28] LABS: ALANINE AMINOTRANSFERASE 37 U/L (12-78); ALBUMIN 3.3 G/DL (3.4-5.0); ALBUMIN/GLOBULIN RATIO 0.9 (1.1-1.5); ALKALINE PHOSPHATASE 114 IU/L (46-116); ANION GAP 6 (8-16); ASPARTATE AMINO TRANSFERASE 20 U/L (10-37); BILIRUBIN,TOTAL 0.2 MG/DL (0.1-1.0); BLOOD UREA NITROGEN 28 MG/DL (7-18); BUN/CREATININE RATIO 24.8 (5.4-32.0); CALCIUM 8.8 MG/DL (8.5-10.1); CHLORIDE 103 MMOL/L (99-107); CREATININE 1.13 MG/DL (0.60-1.10); GLUCOSE 103 MG/DL (70-104); POTASSIUM 4.6 MMOL/L (3.5-5.1); SODIUM 138 MMOL/L (135-145); TOTAL CARBON DIOXIDE 28.8 MMOL/L (24-32); TOTAL PROTEIN 6.9 G/DL (6.4-8.2); eGFR 65 ML/MIN
[2019-05-29 19:00] VITALS: BP 114/55
--- NOTE | 2019-05-30 04:13 | NUR ---
RN PROGRESS NOTE: LEGAL HOLD: 5250 for GD. Report received from ZOYA Toledo REASON FOR ADMISSION: Client was [place] wandering on the [place], disheveled and disorganized. BIB law enforcement. ASSESSMENT: THIS SHIFT: Client paced in elizabeth and sat in group room with headphones on. Client sometimes sings along with the music. Initially he is pleasant. ZOYA Andrade requested client return the headphones and he refused. Client became agitated and angry. Security was called incase client continued to escalate. Client approached this RN and stated, "I'm out of here tomorrow! I'm leaving this fucking dump!" This RN asked, "Where would you like to go?" Client replied, "I'll just walk around." Client had a small scratch on his hand. Neosporin and a bandaid were applied. Client had Saline Lock in right arm. It was flushed with 10 ml NS. S/I, H/I: denies A/VH: denies ADL's: Needs prompting. Were meds taken: No scheduled meds. Any med S/E: MSE: Appearance: disheveled in green scrubs Eye contact: direct Behavior: Easily irritated. Speech: normal rate/rhythm Mood: Labile. Affect: congruent to mood Thought process: disorganized Thought Content: Cognition: A &O X2 Insight: Poor Judgment: Poor PRN's used: None THERAPEUTIC INTERVENTIONS: 1:1 support. Restraints/seclusion/emergency medication: N/A Justification of Continued Inpatient Treatment: Client is unable to plan for food and longterm. He is a high risk for re-admission.
[2019-05-30 07:39] VITALS: BP 112/52
[2019-05-30] MEDS: olanzapine 10mg tablet PO SCH (08:00)
--- NOTE | 2019-05-30 16:42 | NUR ---
Nursing Progress Note: Legal hold: 5270 Client on involuntary status for GD Report received from nurse with use of SBAR: Isabel RN Why are they here: Pt. brought to the ER by [employer] after being found walking on the freeway in an aletered state of confusion with agitation. He presented as deeply tanned, disheveled, and malodorous and was placed on a 5150 by [facility] for GD. Per ER notes, pt. reported he had walker from [facility] to [place] and was on his way to [place], stated, "I'm going to get the michael that killed my brother." He is currently homeless and unable to utilize resources to obtain food, clothing, or care home. Pt. had recently been released from the [facility] for intoxication and several APS reports had been made. Tox Screen negative. Assessment What has happened this shift: Received patient sleeping in bed w/o distress and with normal respirations at change of shift. Pleasant and cooperative in conversation, with moments of anger towards being here or at a person on TV. Refused AM zyprexa after multiple attempts to give it to him. He continues to responds well to affirmations about how he is doing and that he is safe. Likes to tell jokes that don't make sense, but laughs at them. Watched TV and walked halls during free time and will sit with others in recreation room as well. S/I, H/I: Denies A/VH: Denies Sleep: Layed down and appeared to nap ADL's: Requires encouragement Group attendance: Yes Were meds taken: NA Any med S/E: None reported by patient or observed. Mental Status Exam Appearance: disheveled in green scrubs Eye contact: direct Behavior: Pleasant and cooperative Speech: minimal, soft tone, normal rate/rhythm Mood: Pleasant Affect: congruent to mood Thought process: disorganized Thought Content: On current needs Cognition: A &O X3 Insight: Fair Judgment: Fair Interventions PRN's used: None Therapeutic interventions: Continued therapeutic support and medication management needed to provide stabilization, prevent decompensation, improve coping mechanisms decreasing risk to patient and re-admittance. Restraints/seclusion/emergency medication: N/A Justification of Continued Inpatient Treatment: Pt. is unable to provide for his own food, clothing and care home. Continued therapeutic support and medication management needed to provide stabilization, prevent decompensation, decreasing risk to patient and re-admittance.
[2019-05-30] MEDS: OLANZAPINE 5 MG TABLET PO SCH (18:00)
[2019-05-30 19:37] VITALS: BP 115/62
--- NOTE | 2019-05-30 21:51 | NUR ---
Nursing Progress Note; One to one with the patient to assess orientation and insight into need for treatment. The patient has been refusing medications for the past 4 days. Discussed medications and benefits of medications with the patient but he adamantly refused offer of medications. He stated that the doctor "has no legal right to prescribe...Every time I see a pill I throw it in the garbage" He denies that he has a mental illness of any kind and feels he in no way needs to be in a psychiatric facility. He is confused and disoriented. He believes he is the town of [facility] and the year is 2011. He stated he has no funds to purchase food. He is unable to verbalize a plan for food, group home or clothing if he were to be discharged from the hospital. When asked what his discharge plan was he stated, "I'd walk to where ever I want to walk" When it was mentioned that he did not have any funds for group home or food he stated, "I don't care" He has been up on the unit and appears disorganized. He has a poor ability to social with peers or staff. His overall mood is irritable and can be heard mumbling angrily to himself. His affect is blunted to angry. He was reoriented to year, place and why he was here. His insight is very poor. Dr. Gaytan was made aware of medication noncompliance and severity of confusion. The patient's short term memory is also impaired and he believes that he has not been given food while he has been here. He was given a milk and a sandwich.
[2019-05-31] MEDS: olanzapine 10mg tablet PO SCH (07:37)
[2019-05-31 08:21] VITALS: BP 120/59
--- NOTE | 2019-05-31 14:51 | NUR ---
Nursing Progress Note: Latrell Legal hold: 5270 Client on involuntary status for GD Report received from nurse with use of SBAR: GRACE Hall Why are they here: Pt. brought to the ER by [employer] after being found walking on the freeway in an aletered state of confusion with agitation. He presented as deeply tanned, disheveled, and malodorous and was placed on a 5150 by [facility] for GD. Per ER notes, pt. reported he had walker from [facility] to [place] and was on his way to [place], stated, "I'm going to get the michael that killed my brother." He is currently homeless and unable to utilize resources to obtain food, clothing, or group home. Pt. had recently been released from the [facility] for intoxication and several APS reports had been made. Tox Screen negative. Assessment What has happened this shift: Client was awake at shift change and greeted scenario writer with a smile and good eye contact. He was compliant with medications and has no somatic complaints as of this writing. Client has been visible on the unit and social with peers as well as staff. Client appears internally preoccupied at times but is redirectable. Client did sign a Voluntary hold today. No somatic or behavioral issues noted this shift. S/I, H/I: Denies A/VH: Denies Sleep: ADL's: Requires encouragement Group attendance: Yes Were meds taken: yes Any med S/E: None reported by patient or observed. Mental Status Exam Appearance: disheveled Eye contact: direct Behavior: Pleasant and cooperative Speech: minimal, soft tone, normal rate/rhythm Mood: Pleasant Affect: congruent to mood Thought process: disorganized Thought Content: On current needs Cognition: A &O X3 Insight: Fair Judgment: Fair Interventions PRN's used: None Therapeutic interventions: Continued therapeutic support and medication management needed to provide stabilization, prevent decompensation, improve coping mechanisms decreasing risk to patient and re-admittance. Restraints/seclusion/emergency medication: N/A Justification of Continued Inpatient Treatment: Pt. is unable to provide for his own food, clothing and group home. Continued therapeutic support and medication management needed to provide stabilization, prevent decompensation, decreasing risk to patient and re-admittance.
[2019-05-31] MEDS: OLANZAPINE 5 MG TABLET PO SCH (17:18)
[2019-05-31 20:00] VITALS: BP 95/49
--- NOTE | 2019-05-31 22:49 | NUR ---
Nursing Progress Note: One to one with the patient to assess for disordered thought processes, level of confusion and to reorient the patient as needed. The patient was found sitting quietly in front of a window by himself. His affect was blunted. He appears disheveled. He stated he was bored here and had nothing to do. He does present less irritable during the evening assessment after having been med compliant during the day. He could not state where he was at or what type of building this was or that he was on a psychiatric unit. He stated that the year was 2015 and that city he was currently in he stated that he was in [facility]. When asked if how he would provide for food, group home or clothing if he left here he stated he did not know. He stated he had no funds for food and would "I would have to look in garbage cans for cans and bottles" He has very poor short term memory. He stated that he is only being fed one meal per day here and that he was hungry but he declined offer of a sandwich. He periodically wanders the halls and was making an attempt to interact with the staff briefly. He is unable to recall how he came to be here and why he was admitted. He continues to be gravely disabled. He will be transferred back to his home county when transportation and a bed is available.
[2019-06-01] MEDS: olanzapine 10mg tablet PO SCH (07:30)
[2019-06-01 07:52] VITALS: BP 129/65
--- NOTE | 2019-06-01 13:01 | NUR ---
Nursing Progress Note: Latrell Legal hold: 5270 Client on involuntary status for GD Report received from nurse with use of SBAR: Isabel RN Why are they here: Pt. brought to the ER by [employer] after being found walking on the freeway in an aletered state of confusion with agitation. He presented as deeply tanned, disheveled, and malodorous and was placed on a 5150 by [facility] for GD. Per ER notes, pt. reported he had walker from [facility] to [place] and was on his way to [place], stated, "I'm going to get the michael that killed my brother." He is currently homeless and unable to utilize resources to obtain food, clothing, or detention. Pt. had recently been released from the [facility] for intoxication and several APS reports had been made. Tox Screen negative. Assessment What has happened this shift: Client was awake at shift change and greeted conventional mortgage underwriter with a smile and good eye contact. He has no somatic complaints and has been social on unit with peers as well as staff. Client refused his am medications stating, " I don't take fucking pills". Client went to group this am and has had no behavioral issues. Client still believes that he is heading to [place] upon discharge and will be residing, " in one of my [facility]". Client has very little insight into his diagnosis and has no concrete plans in place once discharged. He is scheduled to return to [facility] via [facility] transport. Client claims he has no history in [facility]. S/I, H/I: Denies A/VH: Denies Sleep: ADL's: Requires encouragement Group attendance: Yes Were meds taken: no Any med S/E: None reported by patient or observed. Mental Status Exam Appearance: disheveled
[2019-06-01] MEDS: OLANZAPINE 5 MG TABLET PO SCH (18:00)
[2019-06-01 20:00] VITALS: BP 100/57
--- NOTE | 2019-06-01 23:13 | NUR ---
Nursing Progress Note: Latrell Legal hold: Vol Client on involuntary status for GD Report received from nurse with use of SBAR: GRACE Wise Why are they here: Pt. brought to the ER by [employer] after being found walking on the freeway in an aletered state of confusion with agitation. He presented as deeply tanned, disheveled, and malodorous and was placed on a 5150 by [facility] for GD. Per ER notes, pt. reported he had walker from [facility] to [place] and was on his way to [place], stated, "I'm going to get the michael that killed my brother." He is currently homeless and unable to utilize resources to obtain food, clothing, or mcc. Pt. had recently been released from the [facility] for intoxication and several APS reports had been made. Tox Screen negative. Assessment Patient is self isolating in room, laying in his bed. The patient is pleasant to this machine sign writer. He states he will take his medications later. This patient is cooperative, he smiles, he has polite conversation. Patient denies S/I or H/I. He denies hallucinations. The patient has no memory of attending group. He states he hopes to travel to [place] soon. The patient exhibits some confusion. Later in shift at medication time this patient becomes non compliant with taking medications. Patient has not exhibited any anger tonight. Patient did come out of his room for snacks and television, he then returned to his room for sleep. S/I, H/I: Denies A/VH: Denies Sleep: Naps after shift change. ADL's: Requires encouragement Group attendance: Unknown on days. Were meds taken: No Any med S/E: None reported by patient or observed. Mental Status Exam Appearance: Disheveled Eye contact: Direct Behavior: Pleasant and cooperative Speech: minimal, soft tone, normal rate/rhythm Mood: Pleasant Affect: Congruent to mood Thought process: Disorganized Thought Content: On current needs Cognition: Oriented to person, not to time or situation. Insight: Fair Judgment: Fair Interventions PRN's used: None Therapeutic interventions: Continued therapeutic support and medication management needed to provide stabilization, prevent decompensation, improve coping mechanisms decreasing risk to patient and re-admittance. Restraints/seclusion/emergency medication: N/A Justification of Continued Inpatient Treatment: Pt. is unable to provide for his own food, clothing and mcc. Continued therapeutic support and medication management needed to provide stabilization, prevent decompensation, decreasing risk to patient and re-admittance.
[2019-06-02 08:00] VITALS: BP 116/62
[2019-06-02] MEDS: olanzapine 10mg tablet PO SCH ×3 (08:00→21:00)
--- NOTE | 2019-06-02 13:04 | NUR ---
Nursing Progress Note Legal hold: 5270 Client on involuntary status for GD Report received from nurse with use of SBAR: GRACE Beckford Why are they here: Pt. brought to the ER by [employer] after being found walking on the freeway in an altered state of confusion with agitation. He presented as deeply tanned, disheveled, and malodorous and was placed on a 5150 by [facility] for GD. Per ER notes, pt. reported he had walker from [facility] to [place] and was on his way to [place], stated, "I'm going to get the michael that killed my brother." He is currently homeless and unable to utilize resources to obtain food, clothing, or care home. Pt. had recently been released from the [facility] for intoxication and several APS reports had been made. Tox Screen negative. Assessment What has happened this shift: Client up pacing leaning up against a door jam watching as people walk by at beginning of shift. Client refused am Zyprexa 10 mg PO stating, get out of my face. Client is irritable today any attempt by this ghost writer to prompt him to shower, take his medications or have a general conversation is followed by, stop, dont bother me. Report given to MD in regards to client not taking the Zyprexa. S/I, H/I: N/A does not respond to question A/VH: Is seen staring at people for a long period of time w/a blank stare. Sleep: Per NOC shift slept all shift ADL's: Refused prompts and assistance Group attendance: Yes Were meds taken: Refused Any med S/E: None reported by patient or observed. Mental Status Exam Appearance: disheveled Eye contact: direct Behavior: Uncooperative, pacing, starring at people for long lengths of time when they are talking to another person. Speech: minimal, loud tone, normal rate/rhythm Mood: Irritable Affect: congruent to mood Thought process: disorganized Thought Content: Unknown client will not talk to anyone today Cognition: Alert Insight: Fair Judgment: Fair Interventions PRN's used: refused when offered Therapeutic interventions: Therapeutic communication, encouraged to comply with am assessment and medication orders, q 15 min safety checks. Restraints/seclusion/emergency medication: N/A Justification of Continued Inpatient Treatment: Pt. is unable to provide for his own food, clothing and care home. Continued therapeutic support and medication management needed to provide stabilization, prevent decompensation, decreasing risk to patient and re-admittance. Refusing medications
[2019-06-02 19:00] VITALS: BP 101/39
--- NOTE | 2019-06-03 03:41 | NUR ---
Nursing Progress Note Legal hold: 5270 Client on involuntary status for GD Report received from nurse with use of SBAR: GRACE Wise Why are they here: Pt. brought to the ER by [employer] after being found walking on the freeway in an altered state of confusion with agitation. He presented as deeply tanned, disheveled, and malodorous and was placed on a 5150 by [facility] for GD. Per ER notes, pt. reported he had walker from [facility] to [place] and was on his way to [place], stated, "I'm going to get the michael that killed my brother." He is currently homeless and unable to utilize resources to obtain food, clothing, or [place] [facility]. Pt. had recently been released from the [facility] for intoxication and several APS reports had been made. Tox Screen negative. Assessment What has happened this shift: This patient is ambulating hallways at shift change. His orientation level is to person only, no change from other shifts. The patient exhibits confusion to where his room is as well as what happened earlier in the day. He smiles when prompted. His affect is otherwise blunted. Patient refuses any medication. He occasionally sits and watches another female patient color. Patients presents as disheveled. Patient is redirected as needed to wash hands, eat, etc. S/I, H/I: N/A does not respond to question A/VH: Is seen staring at people for a long period of time w/a blank stare. Sleep: Patient is sleeping this night, will tally at 0500. ADL's: Refused prompts and assistance. Group attendance: Yes, on day shift. Were meds taken: Refused Any med S/E: None reported by patient or observed. Mental Status Exam Appearance: Disheveled Eye contact: Direct Behavior: Uncooperative, pacing, starring at people for long lengths of time when they are talking to another person. Speech: minimal, loud tone, normal rate/rhythm Mood: Irritable Affect: Congruent to mood Thought process: Disorganized Thought Content: Unknown client will not talk to anyone today Cognition: Alert Insight: Fair Judgment: Poor Interventions PRN's used: refused when offered Therapeutic interventions: Therapeutic communication, encouraged to comply with am assessment and medication orders, q 15 min safety checks. Restraints/seclusion/emergency medication: N/A Justification of Continued Inpatient Treatment: Pt. is unable to provide for his own food, clothing and [place] [facility]. Continued therapeutic support and medication management needed to provide stabilization, prevent decompensation, decreasing risk to patient and re-admittance. Refusing medications
[2019-06-03 08:00] VITALS: BP 113/62
--- NOTE | 2019-06-03 15:37 | NUR ---
Nursing Progress Note Legal hold: 5270 Client on involuntary status for GD Report received from nurse with use of SBAR: Merissa Holloway RN Why are they here: Pt. brought to the ER by [employer] after being found walking on the freeway in an altered state of confusion with agitation. He presented as deeply tanned, disheveled, and malodorous and was placed on a 5150 by [facility] for GD. Per ER notes, pt. reported he had walker from [employer] to [place] and was on his way to [place], stated, "I'm going to get the michael that killed my brother." He is currently homeless and unable to utilize resources to obtain food, clothing, or intermediate. Pt. had recently been released from the [facility] for intoxication and several APS reports had been made. Tox Screen negative. Assessment What has happened this shift: Client asleep in bed until breakfast. Client smiled this shift and engaged in conversation regarding his passion of painting, playing cards and playing chess. Chess game started between him and another client. Client smiled after he won and staff gave him "high five." Client attended afternoon group. S/I, H/I: denies A/VH: denies Sleep: Per NOC shift slept all shift ADL's: w/encouragement; today walked away when this filing writer attempts to encourage Group attendance: Yes Were meds taken: Refused Any med S/E: None reported by patient or observed. Mental Status Exam Appearance: disheveled; same clothing as yesterday Eye contact: direct Behavior: mingling w/peers and staff Speech: normal rate and rhythm Mood: Cordial Affect: congruent to mood Thought process: disorganized Thought Content: reminiscing on the past Cognition: Alert Insight: Fair Judgment: Fair Interventions PRN's used: refused when offered Therapeutic interventions: Therapeutic communication, encouraged to comply with am assessment and medication orders, prompts to shower, q 15 min safety checks. Restraints/seclusion/emergency medication: N/A Justification of Continued Inpatient Treatment: Pt. is unable to provide for his own food, clothing and intermediate. Continued therapeutic support and medication management needed to provide stabilization, prevent decompensation, decreasing risk to patient and re-admittance. Refusing medications
[2019-06-03] MEDS: olanzapine 10mg tablet PO SCH (21:18)
--- NOTE | 2019-06-04 02:20 | NUR ---
Nursing Progress Note Legal hold: 5270 Client on involuntary status for GD Report received from nurse with use of SBAR: GRACE Wise Why are they here: Pt. brought to the ER by [employer] after being found walking on the freeway in an altered state of confusion with agitation. He presented as deeply tanned, disheveled, and malodorous and was placed on a 5150 by [facility] for GD. Per ER notes, pt. reported he had walked from [facility] to [place] and was on his way to [place], stated, "I'm going to get the michael that killed my brother." He is currently homeless and unable to utilize resources to obtain food, clothing, or long term. Pt. had recently been released from the [facility] for intoxication and several APS reports had been made. Tox Screen negative. Assessment What has happened this shift: Pt up on unit at start of shift. Watching TV moving between Group room and Rec room. Pt pleasant and cooperative most of the time. Pt became angry and agitated when he saw a [employer] wrapper layer and examiner soft work in the trash. "That was my sandwich and they ate it." Pt calmed down when told he could have a [employer] sandwich for snack. The rest of the shift he was pleasant and cooperative. S/I, H/I: denies A/VH: denies Sleep: sleeping at this time. ADL's: w/encouragement Group attendance: Yes Were meds taken: yes Any med S/E: None reported by patient or observed. Mental Status Exam Appearance: disheveled; same clothing as yesterday Eye contact: direct Behavior: mingling w/peers and staff Speech: normal rate and rhythm Mood: Cordial Affect: congruent to mood Thought process: disorganized Thought Content: reminiscing on the past Cognition: Alert Insight: Fair Judgment: Fair Interventions PRN's used: refused when offered Therapeutic interventions: Therapeutic communication, encouraged to comply with am assessment and medication orders, prompts to shower, q 15 min safety checks. Restraints/seclusion/emergency medication: N/A Justification of Continued Inpatient Treatment: Pt. is unable to provide for his own food, clothing and long term. Continued therapeutic support and medication management needed to provide stabilization, prevent decompensation, decreasing risk to patient and re-admittance. Refusing medications
[2019-06-04 08:18] VITALS: BP 107/60
--- NOTE | 2019-06-04 10:59 | NUR ---
Reassessment: Pt continues meeting nutrient needs with documented 75-100% PO intake. [facility] 06/02. No nutrition diagnosis at this time. Will continue to follow. Addendum: 06/04/19 at [address] Amended: Links added.
--- NOTE | 2019-06-04 15:33 | NUR ---
Nursing Progress Note: Latrell Legal hold: 5270 Client on involuntary status for GD Report received from Night RN Why are they here: Pt. brought to the ER by [employer] after being found walking on the freeway in an altered state of confusion with agitation. He presented as deeply tanned, disheveled, and malodorous and was placed on a 5150 by [facility] for GD. Per ER notes, pt. reported he had walked from [facility] to [place] and was on his way to [place], stated, "I'm going to get the michael that killed my brother." He is currently homeless and unable to utilize resources to obtain food, clothing, or snf. Pt. had recently been released from the [facility] for intoxication and several APS reports had been made. Tox Screen negative. Assessment What has happened this shift: Client was in bed resting with eyes closed and even, unlabored respirations. Woke shortly after shift change and wanted coffee and snack which was provided. Amicable to am assessment and currently denies pain or problems. Client appears somewhat withdrawn today but is social with staff and peers alike. Client attended am group and was walking and visiting with peers this afternoon on the unit. Client still maintains that he has homes and family in [place] where he wants to discharge. S/I, H/I: denies A/VH: denies Sleep: ADL's: w/encouragement Group attendance: yes Were meds taken: Any med S/E: None reported by patient or observed. Mental Status Exam Appearance: disheveled; same clothing as yesterday Eye contact: direct Behavior: mingling w/peers and staff Speech: normal rate and rhythm Mood: Cordial Affect: congruent to mood Thought process: disorganized Thought Content: reminiscing on the past Cognition: Alert Insight: Fair Judgment: Fair Interventions PRN's used: Therapeutic interventions: Therapeutic communication, encouraged to comply with am assessment and medication orders, prompts to shower, q 15 min safety checks. Restraints/seclusion/emergency medication: N/A Justification of Continued Inpatient Treatment: Pt. is unable to provide for his own food, clothing and snf. Continued therapeutic support and medication management needed to provide stabilization, prevent decompensation, decreasing risk to patient and re-admittance. Refusing medications
[2019-06-04 19:57] VITALS: BP 112/60
[2019-06-04] MEDS: olanzapine 10mg tablet PO SCH (21:00)
--- NOTE | 2019-06-05 01:41 | NUR ---
Nursing Progress Note Legal hold: 5270 Client on involuntary status for GD Report received from nurse with use of SBAR: GRACE Wise Why are they here: Pt. brought to the ER by [employer] after being found walking on the freeway in an altered state of confusion with agitation. He presented as deeply tanned, disheveled, and malodorous and was placed on a 5150 by [facility] for GD. Per ER notes, pt. reported he had walked from [facility] to [place] and was on his way to [place], stated, "I'm going to get the michael that killed my brother." He is currently homeless and unable to utilize resources to obtain food, clothing, or chcf. Pt. had recently been released from the [facility] for intoxication and several APS reports had been made. Tox Screen negative. Assessment What has happened this shift: Pt up on unit at start of shift. Watching TV moving between Group room and Rec room. Pt pleasant and cooperative most of the time. Pt refused to HS Zyprexa even after several attempts. "I don't take that shit". S/I, H/I: denies A/VH: denies Sleep: sleeping at this time. ADL's: w/encouragement Group attendance: Yes Were meds taken: yes Any med S/E: None reported by patient or observed. Mental Status Exam Appearance: disheveled; same clothing as yesterday Eye contact: direct Behavior: mingling w/peers and staff Speech: normal rate and rhythm Mood: Cordial Affect: congruent to mood Thought process: disorganized Thought Content: reminiscing on the past Cognition: Alert Insight: Fair Judgment: Fair Interventions PRN's used: refused when offered Therapeutic interventions: Therapeutic communication, encouraged to comply with am assessment and medication orders, prompts to shower, q 15 min safety checks. Restraints/seclusion/emergency medication: N/A Justification of Continued Inpatient Treatment: Pt. is unable to provide for his own food, clothing and chcf. Continued therapeutic support and medication management needed to provide stabilization, prevent decompensation, decreasing risk to patient and re-admittance. Refusing medications
--- NOTE | 2019-06-05 12:12 | NUR ---
DISCHARGE PLANNING: SW made TC to Colin Kan and Nurse Goyal at [facility] to coordinate transportation and re-evaluation services. SW left message requesting return contact. Deb Segovia, Dye Penetrant Testing Technician PEOPLESOFT ADMINISTRATOR [id number] Supervised by Eran Campo, [id number]
[2019-06-05] MEDS ORDERED: Permethrin 1% 59ml topical rinse TP ONE (15:25)
[2019-06-05] MEDS ORDERED: Ivermectin 3mg tablet PO SCH (15:50)
--- NOTE | 2019-06-05 17:00 | NUR ---
NURSING PROGRESS NOTE FOR 06/05/19: Legal hold:5250 Client on involuntary status for DTS/DTO Report received from nurse with use of SBAR: Nithin Sands Why are they here: Pt. awake at start of shift sitting in hallway making phone calls. Pt. is anxious, tremulous, hyperverbal, easily distracted, and perseverates regarding court today and discharge. Pt. misplaced his nicotine patch and became agitated and paranoid, stating, "I think someone hid my nicotine patch on purpose". Pt. given Atarax 50mg po with OK effect. Pt. became more calm and afternoon but remains hyperverbal and perseverates on his discharge stating, "I need to see my primary phsyciatrist to get me restarted on the right ADHD meds. If only I get the right meds, that's what this is all about, if I was on the right meds I wouldn't have this problem." Pt. had hearing today and 5250 upheld. Pt. initially handeled that well but then pt. became agitated, becoming upset with his provider. Pt. given prn klonopin with good effect. Pt. kept on rubbing his nicotine patch making his skin reddened, RN took away pt.'s nicotine patch away. Pt. believes the majority of his problem is because of not having his ADHD medication. Pt. started on Straterra today. Assessment S/I, H/I: Pt denies A/VH: Pt denies Sleep: Pt reported not being able to sleep much last night ADL's: independent Group Yes Were meds taken: Yes Any med S/E: None noted or reported Mental Status Exam Appearance: Clean clothes, somewhat messy hair Eye contact: Good Behavior: cooperative, socializes with staff and peers, friendly, forthright Speech: hyperverbal, pressured speech Mood: anxious, frustrated, agitated. Affect: calm, anxious at times Thought process: perseverates on getting ADHD medication, on discharge. Thought Content: focused on discharge. Cognition: A/O x 4 Insight: poor Judgment: poor Interventions PRN's used: Nicotine lozenges, atarax, klonopin. Interventions: 1:1 assessment, active listening, therapeutic conversation, medication administration/education/monitoring, positive reinforcement, encouraged pt to write things he wishes to discuss with PA down as he expresses fear that he may lose focus and forget what he wished to say or ask, Q15 min safety checks Restraints/seclusion/emergency medication:N/A Justification of Continued Inpatient Treatment: Pt needs crisis stabilization, medication adjustment and management, support and assistance with pt's rights and legal rights in a safe, therapeutic environment. Addendum: 06/06/19 at 0625 by Brooks Crump RN The above note is another pt. The correct note is below: Nursing Progress Note Legal hold: 5270 Client on involuntary status for GD Report received from nurse with use of SBAR: GRACE Sands Why are they here: Pt. brought to the ER by [employer] after being found walking on the freeway in an altered state of confusion with agitation. He presented as deeply tanned, disheveled, and malodorous and was placed on a 5150 by [facility] for GD. Per ER notes, pt. reported he had walked from [employer] to [place] and was on his way to [place], stated, "I'm going to get the michael that killed my brother." He is currently homeless and unable to utilize resources to obtain food, clothing, or residential. Pt. had recently been released from the [facility] for intoxication and several APS reports had been made. Tox Screen negative. Assessment What has happened this shift: Pt. awake at beginning of shift. Pt. is calm and cooperative, but confused. Pt. ate all meals in community room. After lunch pt. became agitated and overheard swearing. Pt. overheard talking with himself in different voices. RN discovered lice in patients hair. Pt. initially refused treatment so pt. was isolated to room. Pt. unhappy about this, swearing and states "I don't have lice!" Pt. eventually agreed to shampoo and take medication prescribed. Pt. combed his hair and trimmed his bear but refused to trim his nails. Pt. currently sitting in day room with other pt.s. S/I, H/I: denies A/VH: denies Sleep: Pt. awake entire shift. ADL's: Pt. showered today and trimmed stevenson with assistance of RN. Pt. refused to trim nails. Group attendance: Yes Were meds taken: yes Any med S/E: None reported by patient or observed. Mental Status Exam Appearance: Clean with hair combed in green scrubs. Eye contact: direct Behavior: Pt. seen engaing with staff and peers appropriately, but at times pt. seen talking to himself with different sounding voices. Speech: normal rate and rhythm Mood: Cordial Affect: congruent to mood Thought process: disorganized Thought Content: focused on food. Cognition: Alert Insight: Fair Judgment: Fair Interventions PRN's used: Therapeutic interventions: Therapeutic communication, encouraged to comply with am assessment and medication orders, prompts to shower, q 15 min safety checks. Restraints/seclusion/emergency medication: N/A Justification of Continued Inpatient Treatment: Pt. is unable to provide for his own food, clothing and residential. Continued therapeutic support and medication management needed to provide stabilization, prevent decompensation, decreasing risk to patient and re-admittance. Refusing medications
[2019-06-05] MEDS: olanzapine 10mg tablet PO SCH (20:18)
[2019-06-05 20:49] VITALS: BP 112/58
--- NOTE | 2019-06-06 01:36 | NUR ---
Nursing Progress Note Legal hold: 5270 Client on involuntary status for GD Report received from nurse with use of SBAR: GRACE Wise Why are they here: Pt. brought to the ER by [employer] after being found walking on the freeway in an altered state of confusion with agitation. He presented as deeply tanned, disheveled, and malodorous and was placed on a 5150 by [facility] for GD. Per ER notes, pt. reported he had walked from [facility] to [place] and was on his way to [place], stated, "I'm going to get the michael that killed my brother." He is currently homeless and unable to utilize resources to obtain food, clothing, or nursing home. Pt. had recently been released from the [facility] for intoxication and several APS reports had been made. Tox Screen negative. Assessment What has happened this shift: Pt up on unit at start of shift. Pt had a towel over his head. Pt attempted to enter his old room became angry when redirected "Are you going to change my room every freaking day. Pt reminded that he and his room needed to be treated for lice. Pt looked surprised obviously he had no memory of this. Pt refused to HS Zyprexa even after several attempts. S/I, H/I: denies A/VH: denies Sleep: sleeping at this time. ADL's: w/encouragement Group attendance: Yes Were meds taken: yes Any med S/E: None reported by patient or observed. Mental Status Exam Appearance: disheveled; same clothing as yesterday Eye contact: direct Behavior: mingling w/peers and staff Speech: normal rate and rhythm Mood: Cordial Affect: congruent to mood Thought process: disorganized Thought Content: reminiscing on the past Cognition: Alert Insight: Fair Judgment: Fair Interventions PRN's used: refused when offered Therapeutic interventions: Therapeutic communication, encouraged to comply with am assessment and medication orders, prompts to shower, q 15 min safety checks. Restraints/seclusion/emergency medication: N/A Justification of Continued Inpatient Treatment: Pt. is unable to provide for his own food, clothing and nursing home. Continued therapeutic support and medication management needed to provide stabilization, prevent decompensation, decreasing risk to patient and re-admittance. Refusing medications
[2019-06-06 08:00] VITALS: BP 111/60
--- NOTE | 2019-06-06 08:11 | NUR ---
DISCHARGE PLANNING: ALISA made TC to [facility], Hospital Systems Software Engineer for [facility] at [phone] (CELL [phone]). ALISA left message requesting return contact. ALISA emailed [facility] requesting confirmation of brain picker time for pt this day. Deb Segovia, Ultrasound Spec WELT DRAWER [id number] Supervised by Eran Campo, [id number]
--- NOTE | 2019-06-06 09:45 | NUR ---
Nursing Progress Note: Latrell Legal hold: [id number] Client on involuntary status for GD Report received from Isabel EDWARDS Why are they here: Pt. brought to the ER by [employer] after being found walking on the freeway in an altered state of confusion with agitation. He presented as deeply tanned, disheveled, and malodorous and was placed on a 5150 by [facility] for GD. Per ER notes, pt. reported he had walked from [facility] to [place] and was on his way to [place], stated, "I'm going to get the michael that killed my brother." He is currently homeless and unable to utilize resources to obtain food, clothing, or fci. Pt. had recently been released from the [facility] for intoxication and several APS reports had been made. Tox Screen negative. Assessment What has happened this shift: Pt up on unit at start of shift. Compliant with care an d social on unit with staff as well as peers. No somatic complaints during am assessment. Patient to discharge today back to [facility] with [facility] staff to escort. S/I, H/I: denies A/VH: denies Sleep: ADL's: w/encouragement Group attendance: yes Were meds taken: NA Any med S/E: None reported by patient or observed. Mental Status Exam Appearance: disheveled Eye contact: direct Behavior: mingling w/peers and staff Speech: normal rate and rhythm Mood: Cordial Affect: congruent to mood Thought process: disorganized Thought Content: reminiscing on the past Cognition: Alert Insight: Fair Judgment: Fair Interventions PRN's used: refused when offered Therapeutic interventions: Therapeutic communication, encouraged to comply with am assessment and medication orders, prompts to shower, q 15 min safety checks. Restraints/seclusion/emergency medication: N/A Justification of Continued Inpatient Treatment: Pt. is unable to provide for his own food, clothing and fci. Continued therapeutic support and medication management needed to provide stabilization, prevent decompensation, decreasing risk to patient and re-admittance. Refusing medications
--- NOTE | 2019-06-06 12:07 | NUR ---
Discharge note Latrell: Client to discharge to the care of [facility] today at 1100 hours. Client is aware of pending discharge but he has very little insight. All belongings were returned to client. Client was treated for lice so his current clothing is unavailable until treated properly. Client condition has greatly improved since his admission and client verbalizes no S/I or H/I. He realizes the need for medications and states that he will comply with all aftercare instructions and appointments. Client does not desire smoking cessation information. Patient education given as it pertains to discharge medications as well as follow up care arrangements. Discharge meds to accompany client to [facility]. Transportation has been verified by ALISA. Client was escorted by [facility] Transport at 1156 hours.
== END 2019-06-06 11:58 | disposition home or self-care (01) | DRG 750 ==
LOC: ADULT MH 10:04
PROVIDERS: ADMIT Psychiatry & Neurology Psychiatry; ATTEND Psychiatry & Neurology Psychiatry
DX: F20.9 Schizophrenia, unspecified (principal); G93.40 Encephalopathy, unspecified; Z59.0 Homelessness; Z91.14 Patient's other noncompliance with medication regimen; F17.210 Nicotine dependence, cigarettes, uncomplicated; I25.2 Old myocardial infarction; Z82.5 Family history of asthma and other chronic lower respiratory diseases
CPT/HCPCS: 36415; 70450; 71045; 80053; 80074; 85025; 86703; 87081; J0515; J1200; J1630; J2060; Q9967; Z7610